=== PATIENT | female | born 1960 | race Caucasian/White ===

== ENCOUNTER → 2022-03-16 | Outpatient (CLI) | payer OTHER ==
[~2022-03-16] MED LIST: ACTOS30 MG PO; FENOFIBRATE160 MG PO; HYDROCHLOROTHIA25 MG PO; LEVOTHYROXINE125 MCG PO; LISINOPRIL20 MG PO; LOPRESSOR50 MG PO; NORVASC10 MG PO; PEPCID20 MG PO; PHENERGAN 12.12.5 M1 PO; PRAVASTATIN SOD40 MG PO; PROTONIX 40 MG40 M1 PO; REGLAN10 MG PO; TRAZODONE HCL100 MG PO; VICTOZA 1818 MG/3 ML SC; VITAMIN D250000 UNIT PO; ZOFRAN 8 MG TAB8 MG PO; ZOFRAN ODT 4 MG4 MG PO
== END ==
LOC: SLEEP 14:39
DX: G47.33 Obstructive sleep apnea (adult) (pediatric) (principal)
CPT/HCPCS: 95811